=== PATIENT | male | born 1935 | race Hispanic/Latino ===

== ENCOUNTER → 2018-04-15 | Outpatient (CLI) | payer MEDICARE ==
[~2018-04-15] VITALS: Ht 165.1 cm; Wt 90.7 kg
[~2018-04-15] MED LIST: FURO40TA5 PO; GABA-531 PO; LOSA100T58 PO; METF-444 PO; METO-391 PO; MONT10TA24 PO; PRAV40TA3 PO; SENN-183 PO; SITA100T12 PO
[2018-04-15 11:01] VITALS: BP 188/67
[2018-04-15 11:07] LABS: BASOPHILS % (AUTO) 0.9 % (0.0-5.0); EOSINOPHILS % (AUTO) 6.1 % (0.0-8.0); HEMATOCRIT 38.8 % (42-54); LYMPHOCYTES % (AUTO) 23.5 % (21.0-51.0); MEAN CORPUSCULAR HEMOGLOBIN 29.5 pg (27.0-33.0); MEAN CORPUSCULAR HGB CONC 33.5 g/dL (32.0-36.0); MONOCYTES % (AUTO) 10.3 % (3.0-13.0); NEUTROPHILS % (AUTO) 59.2 % (40.0-77.0); NUCLEATED RED BLOOD CELLS 0.1 % (0.0-0.19); PLATELET COUNT (AUTO) 120 K/uL (130-400); RED CELL DISTRIBUTION WIDTH 15.8 % (11.0-15.5); WHITE BLOOD COUNT (AUTO) 5.7 K/uL (4.8-10.8)
[2018-04-15 11:14] LABS: APPEARANCE,URINE Clear (CLEAR); BILIRUBIN,URINE Negative (NEGATIVE); COLOR,URINE Yellow (YELLOW); GLUCOSE, URINE (UA) Negative (NEGATIVE); KETONES,URINE Negative (NEGATIVE); LEUKOCYTE ESTERASE ,URINE Small (NEGATIVE); NITRATE,URINE Negative (NEGATIVE); OCCULT BLOOD,URINE Negative (NEGATIVE); PROTEIN,URINE Negative (NEGATIVE)
[2018-04-15 11:17] LABS: POTASSIUM 4.1 mmol/L (3.5-5.1)
[2018-04-15 11:28] LABS: PARTIAL THROMBOPLASTIN TIME 27.3 SEC (26.3-35.5); PROTHROMBIN TIME 10.5 SEC (9.6-11.6)
[2018-04-15 11:48] LABS: BACTERIA,URINE Rare /HPF (None Seen); RBC,URINE 0-1 /HPF (0-1); SQUAMOUS EPITHELIAL CELL,UR Rare /HPF (0-2)
--- NOTE | 2018-04-16 10:15 | NUR ---
ABNORMAL LABS MALI KRAMER NOTIFIED OF PT'S PLATELET CT 120, ULEUKEST SMALL, UWBC 6-10. NO FURTHER ORDERS GIVEN.
== END ==
LOC: DAH 10:00 → EDSTATUS 11:00
PROVIDERS: ATTEND Internal Medicine Cardiovascular Disease
DX: Z01.818 Encounter for other preprocedural examination (principal); I73.9 Peripheral vascular disease, unspecified
CPT/HCPCS: 36415; 71045; 80048; 81001; 85025; 85610; 85730; 93005